=== PATIENT | male | born 1975 | race African-American/Black ===

== ENCOUNTER 2024-04-20 08:57 | Emergency (ER) | payer OTHER ==
[~2024-04-20] VITALS: Ht 182.9 cm; Wt 113.0 kg
[2024-04-20 09:00] VITALS: O2SAT 99
[2024-04-20] MEDS: KETOROLAC 30MG/ML VIAL IM ONE (10:00)
[2024-04-20 10:14] LABS: CLARITY URINE CLEAR (CLEAR); COLOR URINE YELLOW (YELLOW); GLUCOSE URINE NEGATIVE (NEGATIVE); KETONES URINE NEGATIVE (NEGATIVE); LEUKOCYTE ESTERASE URINE NEGATIVE (NEGATIVE); NITRITE URINE NEGATIVE (NEGATIVE); OCCULT BLOOD URINE NEGATIVE (NEGATIVE); PH URINE 5.5 (4.5-8.0); PROTEIN URINE NEGATIVE (NEGATIVE); SPECIFIC GRAVITY URINE 1.031 (1.005-1.030); UROBILINOGEN URINE 0.2 E.U./dL (0.2-1.0)
[2024-04-20] MEDS ORDERED: IBUP-2030 MT (10:45)
[2024-04-20] MEDS ORDERED: TAMS-11 MT (10:45)
[2024-04-20 11:00] VITALS: BP 131/76; PULSE 89; TEMP 98.1
[2024-04-20 11:06] VITALS: RESP 17
[2024-04-20] MEDS: OXYCODONE HCL/ACETAMINOPHEN 5/325MG TABLET PO ONE (11:06)
== END 2024-04-20 11:20 | disposition home or self-care (01) ==
LOC: ER 08:57
DX: N20.0 Calculus of kidney (principal)
CPT/HCPCS: 81003; 74176; 96372; 99285; J1885; Z7610